=== PATIENT | female | born 1990 | race Caucasian/White ===

== ENCOUNTER 2019-08-04 12:05 | Emergency (ER) | payer MEDICAID ==
--- NOTE | 2019-08-04 12:34 | EDM.PDOC ---
ED HPI GENERAL MEDICAL PROBLEM - General Chief Complaint: ENT Problem Stated Complaint: SORE THROAT Time Seen by Provider: 08/04/19 12:20 Source of Information: Reports: Patient, RN, RN Notes Reviewed History Limitations: Reports: No Limitations - History of Present Illness INITIAL COMMENTS - FREE TEXT/NARRATIVE: Patient presents to ER with complaint of sore throat since Thursday. Patient states she began having sore throat, body aches, headache, and small amount of nausea on Thursday patient states other things have resolved but sore throat persists. Patient states she does feel like she needs to cough but it is very painful to cough as well as the pain is painful to eat or drink. Patient states she does not have her tonsils. Admits to some sinus congestion and ear pain as well. Patient states she went online to the [facility] website and had a virtual appointment and was told she probably should have the COVID testing. She states she did feel like she had a fever on Thursday, is afebrile today. Patient states she did travel to [place] on Mother's Day, is not knowingly exposed to any patients with known COVID 19. Onset: Gradual Onset Date: 07/30/19 Duration: Constant Location: Reports: Head, Neck - Related Data Allergies Allergy/AdvReac Type Severity Reaction Status Date / Time No Known Allergies Allergy Verified 08/04/19 12:29 Home Meds: Home Meds Multivitamin [Multivitamins] 1 tab PO DAILY 08/04/19 [History] QUEtiapine [SEROquel] 50 mg PO BEDTIME 08/04/19 [History] buPROPion [buPROPion XL] 150 mg PO DAILY 08/04/19 [History] hydrOXYzine HCL [hydrOXYzine] 50 mg PO TID 08/04/19 [History] Past Medical History HEENT History: Reports: None Cardiovascular History: Reports: None Respiratory History: Reports: None Gastrointestinal History: Reports: None Genitourinary History: Reports: None DERMATOLOGIST History: Reports: Musculoskeletal History: Reports: None Neurological History: Reports: None Psychiatric History: Reports: None Endocrine/Metabolic History: Reports: None Hematologic History: Reports: None Immunologic History: Reports: None Oncologic (Cancer) History: Reports: None Dermatologic History: Reports: None - Infectious Disease History Infectious Disease History: Reports: Hepatitis C - Past Surgical History Head Surgeries/Procedures: Reports: None HEENT Surgical History: Reports: Tonsillectomy Cardiovascular Surgical History: Reports: None Respiratory Surgical History: Reports: None GI Surgical History: Reports: None Female Surgical History: Reports: None Endocrine Surgical History: Reports: None Neurological Surgical History: Reports: None Musculoskeletal Surgical History: Reports: None Oncologic Surgical History: Reports: None Dermatological Surgical History: Reports: None Social & Family History - Family History Family Medical History: Noncontributory - Caffeine Use Caffeine Use: Reports: Soda ED ROS ENT - Review of Systems Review Of Systems: Comprehensive ROS is negative, except as noted in HPI. ED EXAM, ENT - Physical Exam Exam: See Below Exam Limited By: No Limitations General Appearance: Alert, WD/WN, No Apparent Distress Eye Exam: Bilateral Eye: EOMI, Normal Inspection Ears: Normal External Exam, Normal Canal, Hearing Grossly Normal, TM Fluid Nose: Normal Inspection, Normal Mucousa, No Blood Mouth/Throat: Normal Gums, Normal Lips, Normal Teeth, Pharyngeal Erythema, Throat Pain, Other (tongue piercing) Head: Atraumatic, Normocephalic Neck: Normal Inspection, Supple, Non-Tender, Full Range of Motion Respiratory/Chest: No Respiratory Distress, Lungs Clear, Normal Breath Sounds, No Accessory Muscle Use, Chest Non-Tender Cardiovascular: Normal Peripheral Pulses, Regular Rate, Rhythm, No Edema, No Gallop, No JVD, No Murmur, No Rub GI/Abdominal: Normal Bowel Sounds, Soft, Non-Tender, No Organomegaly, No Distention, No Abnormal Bruit, No Mass (Female) Exam: Deferred Rectal (Female) Exam: Deferred Back: Normal Inspection, Full Range of Motion Extremities: Normal Inspection, Normal Range of Motion, Non-Tender, No Pedal Edema, Normal Capillary Refill Neurological: Alert, Oriented, CN II-XII Intact, Normal Cognition, Normal Gait, Normal Reflexes, No Motor/Sensory Deficits Psychiatric: Normal Affect, Normal Mood Skin: Warm, Dry, Intact, Normal Color, No Rash Lymphatic: No Adenopathy Course - Vital Signs Last Recorded V/S: Last Vital Signs Temp 96.6 F L 08/04/19 12:10 Pulse 82 08/04/19 12:10 Resp 16 08/04/19 12:10 BP 126/69 08/04/19 12:10 Pulse Ox 100 08/04/19 12:10 - Orders/Labs/Meds Orders: Active Orders 24 hr Category Date Time Status CULTURE STREP A CONFIRMATION [RM] Stat Lab 08/04/19 12:19 Results STREP SCRN A RAPID W CULT CONF [RM] Stat Lab 08/04/19 12:19 Results Isolation [COMM] Routine Oth 08/04/19 12:22 Active Labs: Influenza A: Influenza B: Rapid Strep: Negative Departure - Departure Time of Disposition: 13:11 Disposition: Home, Self-Care 01 Condition: Fair Clinical Impression: Viral upper respiratory illness - Discharge Information *PRESCRIPTION DRUG MONITORING PROGRAM REVIEWED*: No *COPY OF PRESCRIPTION DRUG MONITORING REPORT IN PATIENT DANI: No Instructions: Upper Respiratory Infection, Adult, [id number], Viral Respiratory Infection, [id number] Forms: ED Department Discharge Additional Instructions: Drink plenty of fluids and stay hydrated Quarantine yourself at home until your test results come back and are given further instruction Return to the ER with any worsening of symptoms Follow up with your primary care facility May use Tylenol and/or Ibuprofen as directed for pain Sepsis Event Note - Focused Exam Vital Signs: Vital Signs Temp Pulse Resp BP Pulse Ox 08/04/19 12:10 96.6 F L 82 16 126/69 100 Date Exam was Performed: 08/04/19 Time Exam was Performed: 13:10 - My Orders Last 24 Hours: My Active Orders 08/04/19 12:19 CULTURE STREP A CONFIRMATION [RM] Stat STREP SCRN A RAPID W CULT CONF [RM] Stat 08/04/19 12:22 Isolation [COMM] Routine - Assessment/Plan Last 24 Hours: My Active Orders 08/04/19 12:19 CULTURE STREP A CONFIRMATION [RM] Stat STREP SCRN A RAPID W CULT CONF [RM] Stat 08/04/19 12:22 Isolation [COMM] Routine
== END 2019-08-04 13:18 | disposition home or self-care (01) ==
LOC: DL.ED 12:05
DX: J06.9 Acute upper respiratory infection, unspecified (principal); Z79.899 Other long term (current) drug therapy
CPT/HCPCS: 87081; 87430; 87804; 99283; U0002

== ENCOUNTER 2021-05-17 17:11 | Inpatient (IN) | payer MEDICAID ==
[2021-05-17] MEDS ORDERED: Penicillin G Potassium 5 MILLUNITS in Sodium Chloride 0.9% 100 ML IV ONE (19:00)
[2021-05-17] MEDS: Lactated Ringers 1,000 ML IV SCH (20:00)
[2021-05-17] MEDS ORDERED: Misoprostol 400 MCG (4 X 100 MCG TAB) RECTAL PRN (20:31)
[2021-05-17] MEDS ORDERED: Lactated Ringers 1,000 ML IV ONE (20:31)
[2021-05-17] MEDS ORDERED: Nalbuphine 10 MG/1 ML Vial IM PRN (20:31)
[2021-05-17] MEDS ORDERED: Tranexamic Acid 1,000 MG in Sodium Chloride 0.9% 100 ML IV PRN (20:31)
[2021-05-17] MEDS ORDERED: fentaNYL 100 MCG/2 ML SDV IVPUSH PRN (20:31)
[2021-05-17] MEDS ORDERED: Ondansetron 4 MG/2 ML SDV IVPUSH PRN (20:31)
[2021-05-17] MEDS ORDERED: Sodium Chloride 0.9% 10 ML Syringe FLUSH PRN (20:31)
[2021-05-17] MEDS ORDERED: Nalbuphine 10 MG/1 ML Vial IVPUSH PRN (20:31)
[2021-05-17] MEDS ORDERED: Acetaminophen 325 MG Tab PO PRN (20:31)
[2021-05-17] MEDS ORDERED: Carboprost Tromethamine 250 MCG/1 ML Amp IM PRN (20:31)
[2021-05-17] MEDS ORDERED: Lidocaine 1% 30 ML SDV INJECT PRN (20:31)
[2021-05-17] MEDS ORDERED: Methylergonovine 0.2 MG/1 ML Amp IM PRN (20:31)
[2021-05-17] MEDS ORDERED: Oxytocin/Normal Saline 30 UNIT/500 ML BAG IV SCH ×2 (20:45)
[2021-05-18] MEDS: Penicillin G Potassium 3 MILLUNITS in Sodium Chloride 0.9% 100 ML IV SCH ×3 (00:19→10:20)
[2021-05-18] MEDS: Lactated Ringers 1,000 ML IV SCH (04:14)
[2021-05-18] MEDS ORDERED: Simethicone 80 MG Tab.Chew PO PRN (08:09)
[2021-05-18] MEDS ORDERED: Docusate Sodium 100 MG Cap PO PRN (08:09)
[2021-05-18] MEDS ORDERED: Oxytocin 10 Units/1 ML SDV IM PRN (08:09)
[2021-05-18] MEDS ORDERED: Acetaminophen 325 MG Tab PO PRN (08:09)
[2021-05-18] MEDS ORDERED: Benzocaine/Menthol 20%-0.5% Spray 78 GM Cannister TOP PRN (08:09)
[2021-05-18] MEDS: Ibuprofen 800 MG Tab PO PRN ×2 (08:30→17:35)
[2021-05-18] MEDS: Prenatal Multivitamin with Calcium/Folic Acid/Iron Tab PO SCH (08:31)
[2021-05-19] MEDS: Ibuprofen 800 MG Tab PO PRN ×2 (02:19→08:26)
[2021-05-19] MEDS: Prenatal Multivitamin with Calcium/Folic Acid/Iron Tab PO SCH (08:25)
== END 2021-05-19 16:20 | disposition home or self-care (01) | DRG 807 ==
LOC: DL.OBCHECK 17:11 → DL.OB 20:31
PROVIDERS: ADMIT Family Medicine; ATTEND Family Medicine
PROC: 10E0XZZ Delivery of Products of Conception, External Approach (ICD-10-PCS; principal; 2021-05-18)
PROC: 3E033VJ Introduction of Other Hormone into Peripheral Vein, Percutaneous Approach (ICD-10-PCS; 2021-05-18)
PROC: 0HQ9XZZ Repair Perineum Skin, External Approach (ICD-10-PCS; 2021-05-18)
DX: O14.04 Mild to moderate pre-eclampsia, complicating childbirth (principal); Z37.0 Single live birth; O70.0 First degree perineal laceration during delivery; Z28.82 Immunization not carried out because of caregiver refusal; O99.824 Streptococcus B carrier state complicating childbirth; O99.814 Abnormal glucose complicating childbirth; Z3A.38 38 weeks gestation of pregnancy; Z86.16 Personal history of COVID-19
CPT/HCPCS: 36415; 59025; 59409; 81003; 82565; 82570; 83615; 84156; 84450; 84460; 84520; 84550; 85027; A9270-GY; J2540; J2590; J7120